=== PATIENT | male | born 1930 | race Caucasian/White ===

== ENCOUNTER 2019-08-11 16:42 | Emergency (ER) | payer MEDICARE, OTHER ==
--- NOTE | 2019-08-11 16:51 | ED Physician Documentation ---
Syncope/Near Syncope - HISTORIAN Historian: patient - HPI Stated Complaint: states he was at the boat and passed out Chief Complaint: Syncope Witnessed: No Position at Time of Episode: sitting Symptoms Prior to Episode: none Character of Events(s): lost consciousness, collapsed. denies: focal seizure Symptoms after Event: denies: confused after event, incontinent of urine, incontinent of stool, breathing shallow, breathing stopped, lost pulse, dextrostick low [employer] Location of Injury: none Associated Symptoms: feels back to normal Further Comments: yes (he states he was sitting at the gambling machine and next thing he knew he was being woke up by people at the boat. Denies any recent illness. He denies any current complaints. Did not have alcohol at the boat) - ROS CONST: denies: recent illness, fever, cough EYES/ENT: none MS/SKIN/LYMPH: denies: joint pain - PAST HX Cardiac Disease: none PE Risk Factors: none Surgeries/Procedures: other (right total knee ) Immunizations: UTD Allergies/Adverse Reactions: Allergies Allergy/AdvReac Type Severity Reaction Status Date / Time Penicillins Allergy Verified 08/11/19 16:59 Home Medications: Ambulatory Orders Medication Instructions Recorded Multivit-Min/FA/Lycopen/Lutein 1 tab PO DAILY 08/11/19 [Centrum Silver Men Tablet] - SOCIAL HX Smoking History: non-smoker Alcohol Use: none Drug Use: none - FAMILY HX Family History: none - VITAL SIGNS Vital Signs: Vital Signs Temp Pulse Resp BP Pulse Ox 97.8 F 94 H 17 172/72 95 08/11/19 19:03 08/11/19 19:03 08/11/19 19:03 08/11/19 19:03 08/11/19 19:03 - REVIEWED ASSESSMENTS Nursing Assessment Reviewed: Yes Vitals Reviewed: Yes Progress - Progress Progress: 1804: Discussing his earlier meal in regards to his blood sugar and he is not appropriately saying his words at all times. The remainder of stroke assessment is normal DG 1810: speech is not abnormal at this time DG 1836: speech is now normal with all discussions DG 185: he is already taking a ASA daily DG 185: discussed case with Dr Choi they would rather go back to the hotel room and she is aware that she should call 911 for any concerns DG ED Results Lab/Radiology - Lab Results Lab Results: Lab Results 08/11/19 08/11/19 08/11/19 17:47 17:46 17:46 WBC RBC Hgb Hct MCV MCH MCHC RDW Plt Count Neut % (Auto) Lymph % (Auto) Andrew % (Auto) Eos % (Auto) Baso % (Auto) Neut # (Auto) Lymph # (Auto) Andrew # (Auto) Eos # (Auto) Baso # (Auto) PT 11.0 Seconds Seconds (8.8-11.9) INR 1.06 (0.80-1.10) Sodium Potassium Chloride Carbon Dioxide Anion Gap BUN Creatinine Estimated Creat Clear Est GFR ( Amer) Est GFR (Non-Af Amer) Glucose Lactate 2.0 U/L U/L (0.7-2.1) Calcium Total Bilirubin AST ALT Alkaline Phosphatase Troponin I 0.020 ng/mL ng/mL (0.012-0.034) Total Protein Albumin Urine Color Yellow (YELLOW) Urine Appearance Clear (CLEAR) Urine pH 5.5 (5.0 - 8.0) Ur Specific [place] 1.025 (1.010-1.030) Urine Protein Trace mg/dL mg/dL (NEGATIVE) Urine Ketones Trace mg/dL H mg/dL (NEGATIVE) Urine Occult Blood Negative (NEGATIVE) Urine Nitrite Negative (NEGATIVE) Urine Bilirubin Negative (NEGATIVE) Urine Urobilinogen 0.2 Eu Eu (0.2-1.0) Ur Leukocyte Esterase Negative (NEGATIVE) Urine Glucose Negative mg/dL mg/dL (NEGATIVE) 08/11/19 08/11/19 17:46 17:46 WBC 6.80 K/ul K/ul (4.00-12.00) RBC 4.10 M/ul M/ul (3.90-5.20) Hgb 12.4 g/dL g/dL (12.0-18.0) Hct 38.1 % % (37.0-53.0) MCV 93.0 fl fl (80.0-100.0) MCH 30.4 pg pg (28.0-34.0) MCHC 32.7 g/dL g/dL (30.0-36.0) RDW 11.4 % % (11.3-14.3) Plt Count 327 K/mm3 K/mm3 (130-400) Neut % (Auto) 62.6 % % (39.0-79.0) Lymph % (Auto) 27.2 % % (16.0-50.0) Andrew % (Auto) 6.8 % % (0.0-11.0) Eos % (Auto) 3.2 % % (0.0-6.8) Baso % (Auto) 0.2 % % (0.0-1.5) Neut # (Auto) 4.3 # k/uL # k/uL (1.4-7.7) Lymph # (Auto) 1.9 # k/uL # k/uL (0.6-4.0) Andrew # (Auto) 0.5 # k/uL # k/uL (0.0-0.9) Eos # (Auto) 0.2 # k/uL # k/uL (0.0-0.6) Baso # (Auto) 0.0 # k/uL # k/uL (0.0-0.5) PT INR Sodium 136 mmol/L L mmol/L (137-145) Potassium 4.1 mmol/L mmol/L (3.5-5.1) Chloride 99 mmol/L mmol/L (98-107) Carbon Dioxide 23 mmol/L mmol/L (22-30) Anion Gap 18.1 BUN 37 mg/dL H mg/dL (9-20) Creatinine 1.97 mg/dL H mg/dL (0.66-1.25) Estimated Creat Clear 29 Est GFR ( Amer) 41 L (60 - ) Est GFR (Non-Af Amer) 34 L (60 - ) Glucose 203 mg/dL H mg/dL (74-106) Lactate Calcium 9.4 mg/dL mg/dL (8.4-10.2) Total Bilirubin 0.7 mg/dL mg/dL (0.2-1.3) AST 27 U/L U/L (15-46) ALT 14 U/L U/L (0-50) Alkaline Phosphatase 53 U/L U/L (38-126) Troponin I Total Protein 7.5 g/dL g/dL (6.3-8.2) Albumin 4.4 g/dL g/dL (3.5-5.0) Urine Color Urine Appearance Urine pH Ur Specific [place] Urine Protein Urine Ketones Urine Occult Blood Urine Nitrite Urine Bilirubin Urine Urobilinogen Ur Leukocyte Esterase Urine Glucose - Orders Orders: ED Orders Category Date Time Status Continuous EKG monitoring Q1H Care 08/11/19 16:56 Active IV Started NOW Care 08/11/19 16:56 Active Orthostatics 1T Care 08/11/19 18:15 Active CHEST 1VIEW [RAD] Stat Exams 08/11/[address] BRAIN W/O CONTRAST Stat Exams 08/11/19 Taken CBC/PLATELET/DIFF Stat Lab 08/11/19 17:46 Completed CMP Stat Lab 08/11/19 17:46 Completed LACTATE Stat Lab 08/11/19 17:46 Completed PTINR [PT-INR] Routine Lab 08/11/19 17:46 Completed TROPONIN I Stat Lab 08/11/19 17:46 Completed UA MACRO DIP ONLY Routine Lab 08/11/19 17:47 Completed 0.9 % Sodium Chloride [Normal Saline] 1,000 ml Med 08/11/19 16:57 Discontinued IV NOW EKG WITH COMPARISON Stat Ther 08/11/19 Ordered Syncope Physical Exam - Physical Exam General Appearance: no acute distress, alert EENT: nml eye inspection, PERRL, pupils unequal, nml ENT inspection Neck/Back: neck supple Respiratory: no resp distress, chest non-tender, breath sounds normal CVS: reg rate & rhythm, heart sounds normal Abdomen: non-tender Skin: warm/dry, normal color Extremities: non-tender, normal range of motion, no evidence of injury - Neuro/Psych Higher Functions: alert, oriented x3, no evidence of acute CVA Cranial Nerves: nml as tested Cerebellar: nml as tested Sensorimotor: nml motor response Discharge Clincal Impression: Syncope and collapse Referrals: Primary Doctor,No [Primary Care Provider] - 2 Days Comments: 1. Follow up with PCP in 2-4 days 2. Increase fluids 3. Watch intake of sugar and carbs until follow up 4. Return to ER for any increased concerns Condition: Stable Disposition: 01 HOME, SELF-CARE Decision to Admit: NO Date of Decison to Admit: 08/11/19 Decision Time: 18:56
[2019-08-11] MEDS ORDERED: 0.9 % SODIUM CHLORIDE 1,000 ML IV ONE (16:57)
[2019-08-11 17:47] LABS: APPEARANCE,URINE CLEAR (CLEAR); COLOR,URINE YELLOW (YELLOW); OCCULT BLOOD,URINE NEGATIVE (NEGATIVE); PH URINE 5.5 (5.0 - 8.0); UROBILINOGEN URINE 0.2 Eu (0.2-1.0)
[2019-08-11 17:48] LABS: BASOPHILS % 0.2 % (0.0-1.5); NEUTROPHILS # 4.3 # k/uL (1.4-7.7)
[2019-08-11 19:21] VITALS: BP 172/72
--- NOTE | 2019-08-12 11:35 | Diagnostic Imaging Report ---
[facility] [address] [facility] [id number] Patient Name: TREY ARMENTA Referring Physician: An Day Date of : 1930 Gender: M Date of Service: 08/11/2019 Exam Requested: CT BRAIN W/O CONTRAST CT brain noncontrast Date of study: August 11, 2019. CLINICAL HISTORY: PT STATES SYNCOPE TODAY (Hx) / ITS.REASON^syncope TECHNIQUE: 5 mm contiguous axial images of the brain, noncontrast. FINDINGS: No comparison studies are provided. There is diffuse cortical and central atrophy with chronic periventricular microvascular ischemic changes. There is no evidence of intracranial mass effect, hemorrhage, or acute hydrocephalus. The lateral ventricles are symmetrical and the 4th ventricle is midline without shift. No acute brain parenchymal changes or extra-axial fluid collections are identified. The posterior fossa contents are within normal limits. The calvarium is intact. The visualized sinuses and mastoid air cells are clear. IMPRESSION: No acute intracranial process. Atrophy and chronic periventricular microvascular ischemic changes. SER
--- NOTE | 2019-08-12 11:37 | Diagnostic Imaging Report ---
[facility] [address] [facility] [id number] Patient Name: TREY ARMENTA Referring Physician: An Day Date of : 1930 Gender: M Date of Service: 08/11/2019 Exam Requested: CHEST 1VIEW Portable view chest Clinical history: Syncope Findings: The heart size is mildly enlarged. The pulmonary vasculature is normal. No pleural effusion, pneumothorax or alveolar consolidation. Impression: No acute disease in the chest elvin
== END 2019-08-11 19:03 | disposition home or self-care (01) ==
LOC: ED 16:42
DX: R55 Syncope and collapse (principal)
CPT/HCPCS: 36415; 70450; 71045; 80053; 81002; 83605; 84484; 85025; 85610; 93005; 99284; J7030; S1016